=== PATIENT | male | born 1985 | race Asian ===

== ENCOUNTER 2017-08-02 17:22 | Emergency (ER) | payer BC ==
[~2017-08-02] VITALS: Ht 167.6 cm; Wt 90.0 kg
[2017-08-02 18:02] LABS: BASO % 0.1 % (0.0-2.0); GRAN # 6.9 (1.4-6.5); GRAN % 81.8 % (42.2-75.2); HEMOGLOBIN 16.1 g/dl (13.5-18.0); LYMPH # 0.8 (1.2-3.4); LYMPH % 8.9 % (20.0-51.0); MEAN CELL VOLUME 83 fl (80.0-100.0); MEAN CORPUSCULAR HEMOGLOBIN 29 pg (27.0-31.0); MEAN CORPUSCULAR HGB CONC 34 g/dl (33.0-37.0); MEAN PLATELET VOLUME 10.4 fl (7.4-10.4); MONO # 0.7 (0.1-0.6); MONO % 8.4 % (1.7-9.3); PLATELET COUNT 169 K/mm3 (130-400); RED BLOOD COUNT 5.65 M/mm3 (4.20-5.60); REDCELL DISTRIBUTION WIDTH-CV 11.7 % (11.5-14.5); WHITE BLOOD COUNT 8.5 K/mm3 (4.8-10.8)
[2017-08-02 18:09] LABS: ADJUSTED CALCIUM 8.8 mg/dL (8.4-10.2); ALBUMIN 4.9 gm/dL (3.5-5.0); CALCIUM 9.5 mg/dL (8.4-10.2); CREATININE, serum 1.15 mg/dL (0.66-1.25); POTASSIUM 3.6 mmol/L (3.4-5.0); TOTAL PROTEIN 8.3 gm/dL (6.4-8.2)
[2017-08-02 18:12] LABS: INFLUENZA B NEGATIVE
[2017-08-02 20:29] VITALS: TEMP 99.7
[2017-08-02] MEDS ORDERED: NORCO 325 MG-51 TAB PO (20:41)
[2017-08-02] MEDS ORDERED: ZITHROMAX 250M250 MG PO (20:41)
[2017-08-02 20:42] VITALS: BP 123/78; PULSE 104
== END 2017-08-02 21:00 | disposition home or self-care (01) ==
LOC: COL.ER 17:22
PROVIDERS: Emergency Medicine
DX: J20.9 Acute bronchitis, unspecified (principal)
CPT/HCPCS: J7030